=== PATIENT | male | born 1950 | race Caucasian/White ===

== ENCOUNTER 2023-06-11 08:47 | Emergency (ER) | payer MEDICARE, OTHER ==
[~2023-06-11] VITALS: Ht 172.7 cm; Wt 91.0 kg
[~2023-06-11 08:47] MED LIST: AMLO2.5T2 MT; COR6 MT; DIVA500T3 MT; GABA-532 MT; MAGN400C MT
[2023-06-11 08:57] VITALS: O2SAT 97
[2023-06-11] MEDS ORDERED: LIDO1ADH71 TOP (09:17)
[2023-06-11] MEDS ORDERED: IBUP-2029 MT (09:17)
[2023-06-11 09:30] VITALS: BP 140/76
[2023-06-11] MEDS ORDERED: KETOROLAC 30MG/ML VIAL IM ONE (09:30)
[2023-06-11 13:44] VITALS: PULSE 86; RESP 16; TEMP 97.7
== END 2023-06-11 13:44 | disposition home or self-care (01) ==
LOC: ER 09:15
DX: B02.9 Zoster without complications (principal); J44.9 Chronic obstructive pulmonary disease, unspecified; E11.9 Type 2 diabetes mellitus without complications; E78.00 Pure hypercholesterolemia, unspecified; I10 Essential (primary) hypertension; F20.9 Schizophrenia, unspecified; Z88.8 Allergy status to other drugs, medicaments and biological substances
CPT/HCPCS: 99283; 96372; J1885